=== PATIENT | female | born 1995 ===

== ENCOUNTER 2022-01-30 16:32 | Outpatient (CLI) ==
[~2022-01-30] VITALS: Ht 160 cm; Wt 107.5 kg
[2022-01-30 17:02] VITALS: BP 120/55
[2022-01-30] MEDS ORDERED: LEVO112T2 PO (17:32)
[2022-01-30] MEDS ORDERED: PRENTAB9 PO (17:34)
[2022-01-30] MEDS ORDERED: GLYB2.5T7 PO (17:34)
[2022-01-30] MEDS ORDERED: HOME MED LIST COMPLETE! XX SCH (17:40)
[2022-01-30 17:42] VITALS: BP 96/51
[2022-01-30 19:24] VITALS: BP 97/50
== END 2022-01-30 21:26 | disposition home or self-care (01) ==
LOC: M LDO 16:32
PROVIDERS: ATTEND Advanced Practice Midwife
DX: O24.419 Gestational diabetes mellitus in pregnancy, unspecified control (principal); O99.283 Endocrine, nutritional and metabolic diseases complicating pregnancy, third trimester; E03.9 Hypothyroidism, unspecified; Z3A.32 32 weeks gestation of pregnancy
CPT/HCPCS: 59025; 76815; G0463